=== PATIENT | female | born 1935 | race Caucasian/White ===

== ENCOUNTER 2017-10-05 08:24 | Emergency (ER) | payer MEDICARE, OTHER ==
[~2017-10-05] VITALS: Ht 167.6 cm; Wt 62.7 kg
[2017-10-05] MEDS ORDERED: SYNTHROID0.075 MG/T PO (08:33)
[2017-10-05 09:14] LABS: BASO % 0.3 % (0.0-2.0); EOS # 0.1 (0.0-0.7); EOS % 0.4 % (0-4.0); GRAN # 11.1 (1.4-6.5); GRAN % 80.8 % (42.2-75.2); HEMATOCRIT 38.4 % (37.0-47.0); HEMOGLOBIN 12.6 g/dl (12.5-16.0); LYMPH # 1.9 (1.2-3.4); LYMPH % 13.8 % (20.0-51.0); MEAN CELL VOLUME 96 fl (80.0-100.0); MEAN CORPUSCULAR HEMOGLOBIN 31 pg (27.0-31.0); MEAN CORPUSCULAR HGB CONC 33 g/dl (33.0-37.0); MEAN PLATELET VOLUME 11.2 fl (7.4-10.4); MONO # 0.6 (0.1-0.6); MONO % 4.2 % (1.7-9.3); PLATELET COUNT 281 K/mm3 (130-400); RED BLOOD COUNT 4.02 M/mm3 (4.10-5.30); REDCELL DISTRIBUTION WIDTH-CV 13.5 % (11.5-14.5)
[2017-10-05 10:24] LABS: CALCIUM 9.3 mg/dL (8.4-10.2); CREATININE, serum 0.78 mg/dL (0.52-1.25); POTASSIUM 3.8 mmol/L (3.4-5.0)
[2017-10-05] MEDS ORDERED: CEPHALEXIN500 M1 PO (12:47)
[2017-10-05 13:25] VITALS: BP 147/77; PULSE 88; TEMP 97.2
== END 2017-10-05 13:06 | disposition home or self-care (01) ==
LOC: COL.ER 08:24
PROVIDERS: Emergency Medicine
DX: R04.0 Epistaxis (principal); E03.9 Hypothyroidism, unspecified
CPT/HCPCS: J2405; J7040

== ENCOUNTER 2017-10-07 06:28 | Emergency (ER) | payer MEDICARE, OTHER ==
[~2017-10-07] VITALS: Ht 167.6 cm; Wt 62.7 kg
[~2017-10-07 06:28] MED LIST: CEPHALEXIN500 M1 PO; SYNTHROID0.075 MG/T PO
[2017-10-07 07:19] LABS: BASO % 0.2 % (0.0-2.0); EOS % 0.4 % (0-4.0); GRAN % 82.9 % (42.2-75.2); HEMATOCRIT 31.3 % (37.0-47.0); HEMOGLOBIN 10.3 g/dl (12.5-16.0); LYMPH # 1.1 (1.2-3.4); LYMPH % 11.1 % (20.0-51.0); MEAN CELL VOLUME 94 fl (80.0-100.0); MEAN CORPUSCULAR HEMOGLOBIN 31 pg (27.0-31.0); MEAN CORPUSCULAR HGB CONC 33 g/dl (33.0-37.0); MONO # 0.5 (0.1-0.6); PLATELET COUNT 220 K/mm3 (130-400); RED BLOOD COUNT 3.33 M/mm3 (4.10-5.30); REDCELL DISTRIBUTION WIDTH-CV 13.7 % (11.5-14.5)
[2017-10-07 07:24] LABS: INR 1.1 (0.8-3.0); PROTHROMBIN TIME 12.9 SECONDS (9.7-12.8)
[2017-10-07 07:27] LABS: PARTIAL THROMBOPLASTIN TIME 26.3 SECONDS (26.0-37.0)
[2017-10-07 07:30] LABS: CALCIUM 9.1 mg/dL (8.4-10.2); CREATININE, serum 0.72 mg/dL (0.52-1.25); POTASSIUM 3.6 mmol/L (3.4-5.0)
[2017-10-07] MEDS ORDERED: NORVASC2.5 MG PO (07:49)
[2017-10-07 08:10] VITALS: BP 170/89; PULSE 94; TEMP 97.7
== END 2017-10-07 08:01 | disposition home or self-care (01) ==
LOC: COL.ER 06:28
PROVIDERS: Emergency Medicine
DX: I10 Essential (primary) hypertension (principal); R04.0 Epistaxis

== ENCOUNTER 2017-10-09 01:47 | Observation (INO) | payer MEDICARE, OTHER ==
[~2017-10-09] VITALS: Ht 167.6 cm; Wt 63.2 kg
[~2017-10-09 01:47] MED LIST changes: +NORVASC2.5 MG PO
[2017-10-09 02:27] LABS: HEMATOCRIT 29.1 % (37.0-47.0); HEMOGLOBIN 9.4 g/dl (12.5-16.0)
[2017-10-09 03:33] LABS: INR 1.1 (0.8-3.0); PROTHROMBIN TIME 12.5 SECONDS (9.7-12.8)
[2017-10-09 03:36] LABS: PARTIAL THROMBOPLASTIN TIME 25.4 SECONDS (26.0-37.0)
[2017-10-09 03:48] LABS: ALBUMIN 3.9 gm/dL (3.5-5.0); BILIRUBIN,TOTAL 0.6 mg/dL (0.0-1.0); CALCIUM 9.1 mg/dL (8.4-10.2); CREATININE, serum 0.82 mg/dL (0.52-1.25); POTASSIUM 3.5 mmol/L (3.4-5.0); TOTAL PROTEIN 6.8 gm/dL (6.4-8.2)
[2017-10-09 05:25] VITALS: BP 149/70; PULSE 88; TEMP 97.3
[2017-10-09 08:00] VITALS: BP 144/64; PULSE 91; TEMP 98.7
[2017-10-09 12:00] VITALS: BP 147/60; PULSE 93; TEMP 98.7
[2017-10-09] MEDS ORDERED: NORVASC 5MG5 MG/TAB PO (15:56)
== END 2017-10-09 17:00 | disposition home or self-care (01) ==
LOC: COL.ER 01:47 → JCC 03:24
PROVIDERS: Physician Assistant
DX: R04.0 Epistaxis (principal); E03.9 Hypothyroidism, unspecified; E87.1 Hypo-osmolality and hyponatremia; D50.0 Iron deficiency anemia secondary to blood loss (chronic); Z90.710 Acquired absence of both cervix and uterus; Z87.891 Personal history of nicotine dependence; Z82.3 Family history of stroke
CPT/HCPCS: J7030